=== PATIENT | female | born 1975 | race Caucasian/White ===

== ENCOUNTER → 2017-09-03 | Outpatient (CLI) | payer BC ==
[~2017-09-03] VITALS: Ht 162.6 cm; Wt 96.8 kg
[~2017-09-03] MED LIST: CYCLOBENZ5 MG PO; DULERA1 ARO IH; LANTUS SOLOS100 U/ML SQ; MOBIC7.5 MG PO; PROAIR HFA0.09 MG/AC IH; ROXICODONE 55 MG/TAB PO; SPIRIVA RE2.5 MCG/Ac IH; ULTRAM50 M1 PO
[2017-09-03 13:00] VITALS: BP 138/83
--- NOTE | 2017-09-04 13:41 | NUR ---
HALTER MONITOR REMOVED, TO [facility]
== END ==
LOC: AMSURD 12:29
DX: M54.5 Low back pain (principal)

== ENCOUNTER → 2018-11-11 | Outpatient (CLI) | payer BC ==
[2017-09-03 13:00] VITALS: BP 138/83
== END ==
LOC: MAMMO 14:22
DX: Z12.31 Encounter for screening mammogram for malignant neoplasm of breast (principal); N64.89 Other specified disorders of breast

== ENCOUNTER → 2018-12-25 | Outpatient (CLI) | payer BC ==
[2017-09-03 13:00] VITALS: BP 138/83
== END ==
LOC: MAMMO 08:09
DX: N64.89 Other specified disorders of breast (principal)

== ENCOUNTER → 2020-04-01 | Outpatient (CLI) | payer BC ==
[2017-09-03 13:00] VITALS: BP 138/83
== END ==
LOC: RAD 15:54
DX: Z12.31 Encounter for screening mammogram for malignant neoplasm of breast (principal); M19.011 Primary osteoarthritis, right shoulder; K21.9 Gastro-esophageal reflux disease without esophagitis; J43.9 Emphysema, unspecified; E11.9 Type 2 diabetes mellitus without complications; M54.9 Dorsalgia, unspecified

== ENCOUNTER → 2020-04-19 | Outpatient (CLI) | payer BC ==
[2017-09-03 13:00] VITALS: BP 138/83
== END ==
LOC: MAMMO 14:50
DX: Z12.31 Encounter for screening mammogram for malignant neoplasm of breast (principal); N63.20 Unspecified lump in the left breast, unspecified quadrant; M25.511 Pain in right shoulder; M54.9 Dorsalgia, unspecified; K21.9 Gastro-esophageal reflux disease without esophagitis; M19.90 Unspecified osteoarthritis, unspecified site; J43.9 Emphysema, unspecified; E11.9 Type 2 diabetes mellitus without complications

== ENCOUNTER → 2020-04-28 | Outpatient (CLI) | payer BC ==
[2017-09-03 13:00] VITALS: BP 138/83
== END ==
LOC: RAD 13:26
DX: N60.02 Solitary cyst of left breast (principal); N60.12 Diffuse cystic mastopathy of left breast; M25.511 Pain in right shoulder; M54.9 Dorsalgia, unspecified; K21.9 Gastro-esophageal reflux disease without esophagitis; M19.90 Unspecified osteoarthritis, unspecified site; J43.9 Emphysema, unspecified; E11.9 Type 2 diabetes mellitus without complications

== ENCOUNTER → 2020-12-19 | Outpatient (REF) ==
[2017-09-03 13:00] VITALS: BP 138/83
== END ==
LOC: LAB 15:04
DX: Z01.89 Encounter for other specified special examinations (principal)

== ENCOUNTER → 2020-12-26 | Outpatient (REF) ==
[2017-09-03 13:00] VITALS: BP 138/83
== END ==
LOC: LAB 10:47
DX: E11.9 Type 2 diabetes mellitus without complications (principal)

== ENCOUNTER → 2020-12-26 | Outpatient (CLI) | payer BC ==
[2017-09-03 13:00] VITALS: BP 138/83
== END ==
LOC: RAD 10:45 → LAB 10:45 → RAD 11:00
DX: I83.009 Varicose veins of unspecified lower extremity with ulcer of unspecified site (principal)

== ENCOUNTER → 2021-07-07 | Outpatient (CLI) | payer BC | LOC: RAD 15:14 | DX: M51.36 Other intervertebral disc degeneration, lumbar region (principal) ==

== ENCOUNTER → 2022-02-09 | Outpatient (CLI) | payer BC ==
[2022-02-09 11:57] LABS: ALBUMIN 4.3 g/dL (3.5-5.0); POTASSIUM 4.3 mmol/L (3.5-5.1)
[2022-02-09 11:58] LABS: CALCIUM 9.4 mg/dL (8.3-10.5)
[2022-02-09 12:01] LABS: TOTAL BILIRUBIN 0.3 mg/dL (0.2-1.2)
[2022-02-09 13:05] LABS: BASO # 0.05 K/mm3 (0.02-0.10); EOS # 0.17 K/mm3 (0.04-0.40); EOS % 2.7 % (1.0-5.0); LYMPH# 2.08 K/mm3 (1.50-4.00); MEAN CELL VOLUME 87 fl (78-100); MEAN CORPUSCULAR HEMOGLOBIN 29 pg (27-31); MEAN CORPUSCULAR HGB CONC 33 g/dL (33-37); MEAN PLATELET VOLUME 10.1 fl (7.4-10.4); MONO # 0.38 K/mm3 (0.20-0.80); NEU # 3.53 K/mm3 (1.40-6.50); PLATELET COUNT 256 K/mm3 (130-400); RED BLOOD COUNT 4.92 M/mm3 (4.10-5.30); RED CELL DISTRIBUTION WIDTH 13.4 % (11.5-14.5); WHITE BLOOD COUNT 6.2 K/mm3 (4.8-10.8)
== END ==
LOC: LAB 11:15
PROVIDERS: Family Medicine
DX: Z00.00 Encounter for general adult medical examination without abnormal findings (principal); E78.5 Hyperlipidemia, unspecified; M54.9 Dorsalgia, unspecified; K21.9 Gastro-esophageal reflux disease without esophagitis; E66.01 Morbid (severe) obesity due to excess calories; M19.90 Unspecified osteoarthritis, unspecified site; J43.9 Emphysema, unspecified; E11.9 Type 2 diabetes mellitus without complications; E55.9 Vitamin D deficiency, unspecified

== ENCOUNTER → 2022-09-04 | Outpatient (CLI) | payer BC | LOC: LAB 09:48 | DX: J43.9 Emphysema, unspecified (principal); K21.9 Gastro-esophageal reflux disease without esophagitis; M54.9 Dorsalgia, unspecified; E78.5 Hyperlipidemia, unspecified; E66.01 Morbid (severe) obesity due to excess calories; M19.90 Unspecified osteoarthritis, unspecified site; E11.9 Type 2 diabetes mellitus without complications ==

== ENCOUNTER → 2024-10-16 | Outpatient (CLI) | payer BC | LOC: RAD 10:28 | DX: M16.0 Bilateral primary osteoarthritis of hip (principal); M51.369 Other intervertebral disc degeneration, lumbar region without mention of lumbar back pain or lower extremity pain ==